=== PATIENT | female | born 1995 | race Caucasian/White ===

== ENCOUNTER 2020-08-03 16:21 | Emergency (ER) | payer MEDICAID, SELFPAY ==
[2020-08-03 16:27] VITALS: BP 122/88; PULSE 64; RESP 17; TEMP 35.1; O2SAT 98
--- NOTE | 2020-08-03 16:42 | W.ED.GENAD ---
Discharge Plan Disposition Patient Disposition: HOME Condition: Good Discharge Details Clinical Impression: Nausea & vomiting Primary Care Provider: None,None ED Provider: Cathy Chapa Home Meds and New Rx's Prescriptions: New ondansetron 4 mg tablet,disintegrating 4 mg PO Q6H PRN (Reason: nausea and vomiting) Qty: 10 RF: 0 Continued fluoxetine [Prozac] 40 mg Capsule 40 mg PO DAILY RF: 0 Discharge Instructions Instructions: Acute Nausea and Vomiting (ED) Additional Instructions: Please encourage frequent sips of fluids. You may continue with the Ondansetron as prescribed for recurrent nausea. I have asked our care managers to help arrange for follow up with primary care. If you develop abdominal pain, inability to stay hydrated or other new/worsening symptoms please seek care urgently once again. COVID-19 testing is pending. You will need to quarantine until testing is back we will call you with results. Stand Alone Forms: PENDING COVID-19 TESTING, Work Release Discharge Data Discharge Date/Time-TO BE ENTERED AT DEPARTURE: 08/03/20 18:18 Medical Decision Making Patient is a pleasant 24 year old female presenting today with nausea and vomiting. STates she woke up this morning with nausea and vomiting. Denies abdominal pain. No change in bowel habits. No dyurea. No vaginal discharge. STates she has implanon, does not believe she is . 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 On exam, she appears nontoxic. She has no abdomninal pain. No CVA tenderness. Lungs are clear, normal cardiac exam. Nirav treat with IV Zofran, hydrate and obtian labs. Discussed htis plan with the patient. At this time, I see no evidence of surgcial abdomen. Her history is not consistent with cholecystitis, she has no pain to suggest pancreatitis, no evidence of appendicitis. She denies ETOH. She smokes marijuana, but her history is not consistent with cyclical vomiting syndrome at this time. More likely, viral etiology. Labs reviewed. Mild leukocytosis with WBC of 13. Anion gap of 13. No other significant abnormalities. UPT negative. Her nausea was only partially improved, augmented with reglan and benadryl after which time her symptoms were completely resovled. she received hydration. Will d/c to home at this time. Particularly with the leukocysosis , I would like her to have f/u with PCP in the next week. She does not currently have a PCP so I have asked care managemetn to help arrange for f/u. She will be discharged home with LAKIA loza. We discussed expected course. I encouraged frequent sips of fluids and slow advancement of diet. She was given strict return precaitions. With the patients job, testing for COVID would be appropriate at this time. She will quarantine unti lthis has retuned. All of her questions and concerns were addressed, she sis in agreement with honorio billings. HPI General Mode of arrival: ambulatory. Date/Time Provider Initiated Documentation: 08/03/20 16:41. Limitations to Documentation: no limitations. Information obtained by: patient and RN notes reviewed. History of Present Illness 24 year old F presents to the emergency department with the chief complaint of nausea and vomiting, described as moderate (frequent episodes of emesis, currently nauseated), with intensity rated at 1 (patient denies any abdominal pain). Quality is described as other (nauseated), and is localized to the abdomen. Patient reports no radiation. Patient started experiencing this hour(s) and it has been constant. No relieving factors improve symptom(s), No exacerbating factors reported . Patient notes no other symptoms., loss of appetite and nausea/vomiting; denies cough, fever/chills, rash and shortness of breath. Patient did receive the following treatments prior to arrival, none Related Data Home Medications Medication Instructions Recorded Confirmed fluoxetine [Prozac] 40 mg PO DAILY 08/03/20 08/03/20 ondansetron 4 mg PO Q6H PRN #10 tab 08/03/20 Previous Rx's Medication Instructions Recorded ondansetron 4 mg PO Q6H PRN #10 tab 08/03/20 Allergies Allergy/AdvReac Type Severity Reaction Status Date / Time Sulfa (Sulfonamide Allergy Intermediate Hives Unverified 08/03/20 16:32 Antibiotics) General Stated Complaint: Nausea/Vomit/Diar FRANCES: 3 Review of Systems Constitutional Constitutional: Reports as per HPI, Denies chills, Denies fatigue, Denies fever(s) and Denies headache(s) ENT Ears, Nose, Mouth, and Throat: Denies headache(s) Cardiovascular Cardiovascular: Reports as per HPI, Denies chest pain and Denies dyspnea Respiratory Respiratory: Reports as per HPI, Denies cough and Denies dyspnea Gastrointestinal Gastrointestinal: Reports as per HPI Musculoskeletal Musculoskeletal: Reports as per HPI and Denies back pain Integumentary/Breasts Skin/Breast: Reports as per HPI and Denies rash Neurologic Neurologic: Reports as per HPI and Denies headache(s) Endocrine Endocrine: Denies fatigue [facility] Social History Smoking/Tobacco Use Status: Never Smoking risk assessment performed?: Yes Alcohol Intake: current Alcohol Intake frequency: holidays/special occasions only Substance use type: marijuana Do you feel safe at home: Yes Do you feel safe in your relationship?: Yes Exam Const General: cooperative, healthy appearing, comfortable, no acute distress and well developed Nutritional Appearance: average body habitus and well nourished Orientation: alert and awake HENTN Head: normal to inspection Mouth: moist mucous membranes Resp Effort & Inspection: normal respiratory effort, able to speak in complete sentences and no respiratory distress Auscultation: clear to auscultation bilaterally, no rales, no rhonchi and no wheezes Cardio Rate: regular rate Rhythm: regular rhythm Heart Sounds: S1 normal and S2 normal GI Inspection: normal to inspection, no edema, non-distended, no obesity, no visible herniation and no visible pulsation Palpation: soft, no hepatosplenomegaly, not firm, no guarding, no masses, no pulsatile masses, not rigid and nontender Percussion: normal to percussion Auscultation: normal bowel sounds Back/Spine/Pelvis Back: no CVA tenderness Skin General skin exam: no rashes or lesions noted Trauma: no lacerations or abrasions Neuro General: patient alert and patient awake Cognition: normal cognition Speech: speech normal Gait: normal gait Psych Appearance: grossly normal and well kempt Mental Status: mental status grossly normal Speech and Movement: speech and movement normal Course Vital Signs Vital signs: Vital Signs Temperature 35.1 C L 08/03/20 16:27 Pulse 64 08/03/20 16:27 Respiratory Rate 17 08/03/20 16:27 Blood Pressure 122/88 08/03/20 16:27 Pulse Oximetry 98 08/03/20 16:27 Temperature 35.1 C L 08/03/20 16:27 Temperature Source Temporal Artery Scan 08/03/20 16:27 Pulse 64 08/03/20 16:27 Respiratory Rate 17 08/03/20 16:27 Respiratory Effort Non-Labored 08/03/20 16:30 Blood Pressure 122/88 08/03/20 16:27 Blood Pressure Position Sitting 08/03/20 16:27 Pulse Oximetry 98 08/03/20 16:27 Oxygen Delivery Method Room Air 08/03/20 16:27 Oxygen Flow Rate 0 08/03/20 16:27 Pain Level 0 08/03/20 16:27
[2020-08-03] MEDS: Normal Saline 1,000 ML 1000 ML IV (17:00)
[2020-08-03] MEDS: Ondansetron 4 MG/2 ML VIAL IVP (17:00)
[2020-08-03 17:05] LABS: Basophils % 0.1; HCT 42.9 % (36.0-46.0); HGB 15.6 g/dL (11.2-15.7); Immature Grans % 0.7; Lymphocytes % 4.9; MCH 30.8 pg (27.0-33.0); MCHC 36.4 % (32.0-36.0); MCV 84.8 fL (80-95); MPV 9.4 fL (8.0-11.0); Monocytes % 1.6; Neutrophils % 92.7; Nucleated RBC 0 %; Platelet Count 300 10^3/uL (130-400); RBC 5.06 10^6/uL (3.93-5.22); RDW-SD 36.3 fL; WBC 13.98 10^3/uL (4.4-10.8)
[2020-08-03 17:06] LABS: Absolute Basophil Count 0.01 10^3/uL (0.0-0.2); Absolute Lymphocyte Count 0.69 10^3/uL (1.2-3.4); Absolute Monocyte Count 0.22 10^3/uL (0.1-0.8); Absolute Neutrophil Count 12.96 10^3/uL (1.2-6.7)
[2020-08-03 17:20] LABS: ALT 18 U/L (14-59); AST 16 U/L (15-37); Albumin 4.7 g/dL (3.4-5.0); Alkaline Phosphatase 77 U/L (46-116); Anion Gap 13.7 mmol/L (3-11); BUN 17 mg/dL (7-18); Bilirubin, Total 0.8 mg/dL (0.2-1.0); CO2 23.3 mmol/L (21.0-32.0); CREATININE 0.77 mg/dL (0.55-1.02); Calcium 9.5 mg/dL (8.5-10.1); Chloride 103 mmol/L (98-107); Glucose 152 mg/dL (74-106); Potassium 3.5 mmol/L (3.5-5.1); Sodium 140 mmol/L (136-145); Total Protein 8.5 g/dL (6.4-8.2)
[2020-08-03] MEDS: diphenhydrAMINE 50 MG/ML VIAL 25 MG IVP (17:31)
[2020-08-03] MEDS: Metoclopramide 10 MG/2 ML VIAL IVP (17:32)
[2020-08-03 18:12] VITALS: BP 108/65; PULSE 66; RESP 17; TEMP 36.3; O2SAT 97
[2020-08-07 20:59] LABS: Patient Race White; SARS-CoV-2 RNA Undetected (Undetected); SARS-CoV-2 Specimen Source Nasopharynx
--- NOTE | 2020-08-08 11:19 | NUR.NOTE ---
08/08 @ 1118 left message for patient to return call.
--- NOTE | 2020-08-11 08:09 | NUR.NOTE ---
Nursing Note: 08/10/20 left message at 0805-----08/11/20 left message at 0810---arrangement to send letter.
== END 2020-08-03 18:18 | disposition home or self-care (01) ==
LOC: ER 18:11
PROVIDERS: Emergency Provider Physician Assistant
DX: R11.2 Nausea with vomiting, unspecified (principal); Z03.818 Encounter for observation for suspected exposure to other biological agents ruled out
CPT/HCPCS: 36415; 80053; 81025; 96361; 96374; 96375; 99284; U0003; 85025; J1200; J2405; J2765